=== PATIENT | female | born 1995 | race Caucasian/White ===

== ENCOUNTER 2016-12-31 19:36 | Observation (INO) | payer MEDICAID ==
--- NOTE | 2016-12-31 19:45 | EDM.PDOC ---
ED HPI GENERAL MEDICAL PROBLEM - General Chief Complaint: Abdominal Pain Stated Complaint: PT HAS STOMACH PAINS Time Seen by Provider: 12/31/16 19:40 - History of Present Illness INITIAL COMMENTS - FREE TEXT/NARRATIVE: HISTORY AND PHYSICAL: History of present illness: Patient is a 21-year-old white female with a positive home test presents with cervical study abdominal pain is November vaginal bleeding discharge trauma or other concern she did have a recent miscarriage and is quite anxious regarding the circumstances Review of systems: As per history of present illness and below otherwise all systems reviewed and negative. Past medical history: As per history of present illness and as reviewed below otherwise noncontributory. Surgical history: As per history of present illness and as reviewed below otherwise noncontributory. Social history: No reported history of drug or alcohol abuse. Family history: As per history of present illness and as reviewed below otherwise noncontributory. Physical exam: HEENT: Atraumatic, normocephalic, pupils reactive, negative for conjunctival pallor or scleral icterus, mucous membranes moist, throat clear, neck supple, nontender, trachea midline. Lungs: Clear to auscultation, breath sounds equal bilaterally, chest nontender. Heart: S1S2, regular, negative for clicks, rubs, or JVD. Abdomen: Soft, nondistended, nontender. Negative for masses or hepatosplenomegaly. Negative for costovertebral tenderness. Pelvis: Stable nontender. Genitourinary: Deferred. Rectal: Deferred. Extremities: Atraumatic, negative for cords or calf pain. Neurovascular unremarkable. Neuro: Awake, alert, oriented. Cranial nerves II through XII unremarkable. Cerebellum unremarkable. Motor and sensory unremarkable throughout. Exam nonfocal. Diagnostics: CBC quantitative beta hCG ABO Rh pelvic ultrasound Therapeutics: To be determined Impression: #1 first trimester #2 tubal Definitive disposition and diagnosis as appropriate pending reevaluation and review of above. Patient received 40 minutes total critical care independent of procedures Lower Abdominal Pain Score (Numeric/FACES): 6 - Related Data Allergies Allergy/AdvReac Type Severity Reaction Status Date / Time No Known Allergies Allergy Verified 12/31/16 19:55 Home Meds: Home Meds . [No Known Home Meds] 12/31/16 [History] Vit37/Iron/Folic Acid [Prenata] 12/31/16 [History] ED ROS GENERAL - Review of Systems Review Of Systems: ROS reveals no pertinent complaints other than HPI. ED EXAM, GENERAL - Physical Exam Exam: See Below (See dictation) Course - Vital Signs Last Recorded V/S: Last Vital Signs Temp 36.8 C 12/31/16 19:45 Pulse 78 12/31/16 21:15 Resp 18 12/31/16 21:15 BP 118/63 12/31/16 21:15 Pulse Ox 98 12/31/16 21:15 - Orders/Labs/Meds Orders: Active Orders 24 hr Category Date Time Status OB 1st Tri Sgl 1st Gest [US] Stat Exams 12/31/16 19:48 Taken Labs: Laboratory Tests 12/31/16 12/31/16 12/31/16 Range/Units 19:52 19:52 19:52 WBC 8.04 (4.0-11.0) K/uL RBC 4.08 L (4.30-5.90) M/uL Hgb 13.2 (12.0-16.0) g/dL Hct 37.5 (36.0-46.0) % MCV 91.9 (80.0-98.0) fL MCH 32.4 H (27.0-32.0) pg MCHC 35.2 (31.0-37.0) g/dL RDW Std Deviation 40.1 (28.0-62.0) fl RDW Coeff of Sarah 12 (11.0-15.0) % Plt Count 219 (150-400) K/uL MPV 9.00 (7.40-12.00) fL Neut % (Auto) 62.3 (48.0-80.0) % Lymph % (Auto) 27.4 (16.0-40.0) % [place] % (Auto) 9.1 (0.0-15.0) % Eos % (Auto) 1.0 (0.0-7.0) % Baso % (Auto) 0.2 (0.0-1.5) % Neut # (Auto) 5.0 (1.4-5.7) K/uL Lymph # (Auto) 2.2 (0.6-2.4) K/uL [place] # (Auto) 0.7 (0.0-0.8) K/uL Eos # (Auto) 0.1 (0.0-0.7) K/uL Baso # (Auto) 0.0 (0.0-0.1) K/uL Nucleated RBC % 0.0 /100WBC Nucleated RBCs # 0 K/uL Sodium 139 (136-146) mmol/L Potassium 3.4 L (3.5-5.1) mmol/L Chloride 110 (98-110) mmol/L Carbon Dioxide 21 (21-31) mmol/L BUN 13 (6.0-23.0) mg/dL Creatinine 0.7 (0.6-1.5) mg/dL Est Cr Clr Drug Dosing TNP Estimated GFR (MDRD) > 60.0 ml/min Glucose 89 (60-110) mg/dL Calcium 9.0 (8.8-10.8) mg/dL Total Bilirubin 0.3 (0.1-1.5) mg/dL AST 16 (5-40) IU/L ALT 19 (8-54) IU/L Alkaline Phosphatase 45 (40-150) Total Protein 6.8 (6.0-8.0) g/dL Albumin 4.0 (3.5-5.0) g/dL Globulin 2.8 (2.0-3.5) g/dL Albumin/Globulin Ratio 1.4 (1.3-2.8) HCG, Quant 4684.9 mIU/mL Departure - Departure Time of Disposition: 21:42 Disposition: Admitted As Inpatient 66 Condition: Good, Serious Clinical Impression: Abdominal pain, Tubal - Discharge Information Referrals: PCP,None [Primary Care Provider] - Forms: ED Department Discharge - My Orders Last 24 Hours: My Active Orders 12/31/16 19:48 OB 1st Tri Sgl 1st Gest [US] Stat - Assessment/Plan Last 24 Hours: My Active Orders 12/31/16 19:48 OB 1st Tri Sgl 1st Gest [US] Stat
[2016-12-31 20:21] LABS: CHLORIDE,CL 110 mmol/L (98-110); SODIUM,NA 139 mmol/L (136-146)
[2016-12-31] MEDS ORDERED: fentaNYL 100 MCG/2 ML SDV ONE ×2 (22:55→23:40)
[2016-12-31] MEDS ORDERED: Lidocaine 2% 5 ML SDV ONE (22:55)
[2016-12-31] MEDS ORDERED: Rocuronium 10 MG/ML 10 ML Syringe ONE (22:55)
[2016-12-31] MEDS ORDERED: Succinylcholine/Normal Saline 200 MG/10 ML Syringe ONE (22:55)
[2016-12-31] MEDS ORDERED: Ondansetron 4 MG/2 ML SDV ONE (22:55)
[2016-12-31] MEDS ORDERED: Propofol 200 MG/20 ML SDV ONE (22:55)
[2016-12-31] MEDS ORDERED: Midazolam 1 MG/ML 2 ML SDV ONE (22:56)
[2016-12-31] MEDS ORDERED: Bupivacaine 0.25% 10 ML SDV ONE (23:01)
--- NOTE | 2016-12-31 23:04 | PCM.PREANE ---
Preanesthetic Assessment - Anesthesia/Transfusion/Family Hx Anesthesia History: Prior Anesthesia Without Reaction Family History of Anesthesia Reaction: No Transfusion History: No Prior Transfusion(s) Intubation History: Unknown - Review of Systems General: No Symptoms Pulmonary: No Symptoms Cardiovascular: No Symptoms Gastrointestinal: No Symptoms Neurological: No Symptoms Other: Reports: None - Physical Assessment NPO Status Date: 12/31/16 NPO Status Time: 19:00 O2 Sat by Pulse Oximetry: 99 Respiratory Rate: 18 Vital Signs: Last Vital Signs Temp 99.3 F 12/31/16 22:41 Pulse 81 12/31/16 22:41 Resp 18 12/31/16 22:41 BP 127/78 12/31/16 22:41 Pulse Ox 99 12/31/16 22:41 Height: 5 ft 6 in Weight: 91 kg ASA Class: 2E Mental Status: Alert & Oriented x3 Airway Class: Mallampati = 2 Dentition: Reports: Normal Dentition Thyro-Mental Finger Breadths: 3 Mouth Opening Finger Breadths: 3 ROM/Head Extension: Full Lungs: Clear to Auscultation, Normal Respiratory Effort Cardiovascular: Regular Rate, Regular Rhythm - Lab Values: Laboratory Last Values WBC 8.04 K/uL (4.0-11.0) 12/31/16 19:52 RBC 4.08 M/uL (4.30-5.90) L 12/31/16 19:52 Hgb 13.2 g/dL (12.0-16.0) 12/31/16 19:52 Hct 37.5 % (36.0-46.0) 12/31/16 19:52 MCV 91.9 fL (80.0-98.0) 12/31/16 19:52 MCH 32.4 pg (27.0-32.0) H 12/31/16 19:52 MCHC 35.2 g/dL (31.0-37.0) 12/31/16 19:52 RDW Std Deviation 40.1 fl (28.0-62.0) 12/31/16 19:52 RDW Coeff of Sarah 12 % (11.0-15.0) 12/31/16 19:52 Plt Count 219 K/uL (150-400) 12/31/16 19:52 MPV 9.00 fL (7.40-12.00) 12/31/16 19:52 Neut % (Auto) 62.3 % (48.0-80.0) 12/31/16 19:52 Lymph % (Auto) 27.4 % (16.0-40.0) 12/31/16 19:52 [place] % (Auto) 9.1 % (0.0-15.0) 12/31/16 19:52 Eos % (Auto) 1.0 % (0.0-7.0) 12/31/16 19:52 Baso % (Auto) 0.2 % (0.0-1.5) 12/31/16 19:52 Neut # (Auto) 5.0 K/uL (1.4-5.7) 12/31/16 19:52 Lymph # (Auto) 2.2 K/uL (0.6-2.4) 12/31/16 19:52 [place] # (Auto) 0.7 K/uL (0.0-0.8) 12/31/16 19:52 Eos # (Auto) 0.1 K/uL (0.0-0.7) 12/31/16 19:52 Baso # (Auto) 0.0 K/uL (0.0-0.1) 12/31/16 19:52 Nucleated RBC % 0.0 /100WBC 12/31/16 19:52 Nucleated RBCs # 0 K/uL 12/31/16 19:52 Sodium 139 mmol/L (136-146) 12/31/16 19:52 Potassium 3.4 mmol/L (3.5-5.1) L 12/31/16 19:52 Chloride 110 mmol/L (98-110) 12/31/16 19:52 Carbon Dioxide 21 mmol/L (21-31) 12/31/16 19:52 BUN 13 mg/dL (6.0-23.0) 12/31/16 19:52 Creatinine 0.7 mg/dL (0.6-1.5) 12/31/16 19:52 Est Cr Clr Drug Dosing TNP 12/31/16 19:52 Estimated GFR (MDRD) > 60.0 ml/min 12/31/16 19:52 Glucose 89 mg/dL (60-110) 12/31/16 19:52 Calcium 9.0 mg/dL (8.8-10.8) 12/31/16 19:52 Total Bilirubin 0.3 mg/dL (0.1-1.5) 12/31/16 19:52 AST 16 IU/L (5-40) 12/31/16 19:52 ALT 19 IU/L (8-54) 12/31/16 19:52 Alkaline Phosphatase 45 (40-150) 12/31/16 19:52 Total Protein 6.8 g/dL (6.0-8.0) 12/31/16 19:52 Albumin 4.0 g/dL (3.5-5.0) 12/31/16 19:52 Globulin 2.8 g/dL (2.0-3.5) 12/31/16 19:52 Albumin/Globulin Ratio 1.4 (1.3-2.8) 12/31/16 19:52 HCG, Quant 4684.9 mIU/mL 12/31/16 19:52 - Allergies Allergies/Adverse Reactions: Allergies Allergy/AdvReac Type Severity Reaction Status Date / Time No Known Allergies Allergy Verified 12/31/16 19:55 - Acknowledgements Anesthesia Type Planned: General Anesthesia Pt an Appropriate Candidate for the Planned Anesthesia: Yes Alternatives and Risks of Anesthesia Discussed w Pt/Guardian: Yes Pt/Guardian Understands and Agrees with Anesthesia Plan: Yes PreAnesthesia Questionnaire HEENT History: Reports: None Cardiovascular History: Reports: None Respiratory History: Reports: Other (See Below) (Smoker) Gastrointestinal History: Reports: GERD Genitourinary History: Reports: None FEED MANAGER History: Reports: , Spontaneous LMP (Approximate): Musculoskeletal History: Reports: None Neurological History: Reports: None Psychiatric History: Reports: Anxiety Endocrine/Metabolic History: Reports: Obesity/BMI 30+ Hematologic History: Reports: None Immunologic History: Reports: None Oncologic (Cancer) History: Reports: None Dermatologic History: Reports: None - Infectious Disease History Infectious Disease History: Reports: None - Past Surgical History HEENT Surgical History: Reports: Tonsillectomy Cardiovascular Surgical History: Reports: None Respiratory Surgical History: Reports: None GI Surgical History: Reports: None Musculoskeletal Surgical History: Reports: None - SUBSTANCE USE Smoking Status *Q: Current Every Day Smoker Tobacco Use Within Last Twelve Months: Cigarettes - HOME MEDS Home Medications: Home Meds . [No Known Home Meds] 12/31/16 [History] Vit37/Iron/Folic Acid [Prenata] 12/31/16 [History] - CURRENT (IN HOUSE) MEDS Current Meds: Current Medications Discontinued Medications Bupivacaine HCl (Sensorcaine-Mpf 0.25%) Confirm Administered Dose 20 ml .ROUTE .STK-MED ONE Stop: 12/31/16 23:02 Fentanyl (Sublimaze) Confirm Administered Dose 200 mcg .ROUTE .STK-MED ONE Stop: 12/31/16 22:56 Lidocaine (Xylocaine-Mpf 2%) Confirm Administered Dose 5 ml .ROUTE .STK-MED ONE Stop: 12/31/16 22:56 Midazolam HCl (Versed 1 Mg/Ml) Confirm Administered Dose 2 mg .ROUTE .STK-MED ONE Stop: 12/31/16 22:57 Ondansetron HCl (Zofran) Confirm Administered Dose 4 mg .ROUTE .STK-MED ONE Stop: 12/31/16 22:56 Propofol (Diprivan 20 Ml) Confirm Administered Dose 200 mg .ROUTE .STK-MED ONE Stop: 12/31/16 22:56 Rocuronium [place] (Zemuron) Confirm Administered Dose 100 mg .ROUTE .STK-MED ONE Stop: 12/31/16 22:56 Succinylcholine Chloride (Succinylcholine In Ns Pf) Confirm Administered Dose 200 mg .ROUTE .STK-MED ONE Stop: 12/31/16 22:56
[2016-12-31] MEDS ORDERED: Neostigmine Methylsulfate 1 MG/ML 5 ML Syringe ONE (23:48)
[2016-12-31] MEDS ORDERED: Phenylephrine/Normal Saline 100 MCG/ML 10 ML Syringe ONE (23:51)
[2017-01-01] MEDS ORDERED: fentaNYL 100 MCG/2 ML SDV ONE ×4 (00:01→01:47)
[2017-01-01] MEDS ORDERED: Midazolam 1 MG/ML 2 ML SDV ONE (00:12)
--- NOTE | 2017-01-01 01:06 | PCM.OPNOTE ---
<Sonido Petersen - Last Filed: 01/01/17 01:01> - General Post-Op/Procedure Note Date of Surgery/Procedure: 12/31/16 Operative Procedure(s): Diagnostic laperoscopy with pelvic washings and ovarian biopsy Findings: Normal Right Ovary Left Ovarian Cyst Pre Op Diagnosis: Suspected left tubal ectopic Post-Op Diagnosis: same Anesthesia Technique: General LMA Primary Surgeon: Lyndsay Maxwell Sprigger: Sonido Petersen Pathology: Pelvic washings Left ovarian biopsy Left ovarian cyst wall biopsy Fluid Replacement, Intraop: 1,400 EBL in mLs: 20 Complications: None know Condition: Good Free Text/Narrative:: Intake & Output 12/31/16 12/31/16 01/01/17 14:59 22:59 06:59 Output Total 50 Balance -50 <Lyndsay Maxwell - Last Filed: 01/01/17 01:15> - General Post-Op/Procedure Note Operative Procedure(s): Diagnostic laparoscopy with pelvic washings and ovarian biopsy Post-Op Diagnosis: of unknow location Anesthesia Technique: General ET Tube Free Text/Narrative:: Intake & Output 12/31/16 12/31/16 01/01/17 14:59 22:59 06:59 Intake Total 1400 Output Total 50 Balance 1350
[2017-01-01] MEDS ORDERED: Ondansetron 4 MG/2 ML SDV IVPUSH PRN ×2 (01:16→05:21)
[2017-01-01] MEDS ORDERED: Promethazine 25 MG/ML SDV IM PRN ×2 (01:16→05:21)
[2017-01-01] MEDS ORDERED: Acetaminophen/oxyCODONE 325-5 MG Tab PO PRN ×4 (01:16→05:21)
[2017-01-01] MEDS ORDERED: Rho(D) Immune Globulin 300 MCG/2 ML Syringe IM ONE (01:22)
[2017-01-01] MEDS ORDERED: HYDROmorphone 1 MG/ML Syringe IVPUSH ONE ×2 (01:34→01:40)
[2017-01-01] MEDS ORDERED: HYDROmorphone 2 MG/ML Syringe ONE (01:36)
[2017-01-01] MEDS ORDERED: Promethazine 25 MG/ML SDV ONE (01:48)
[2017-01-01] MEDS: fentaNYL 100 MCG/2 ML SDV IVPUSH PRN ×2 (01:48→01:53)
--- NOTE | 2017-01-01 02:14 | PCM.POSTAN ---
POST ANESTHESIA ASSESSMENT - MENTAL STATUS Mental Status: Alert, Oriented - VITAL SIGNS Pulse Rate: 58 SaO2: 100 Resp Rate: 12 Blood Pressure: 137/84 - RESPIRATORY Respiratory Status: Respiratory Rate WNL, Airway Patent, O2 Saturation Stable - CARDIOVASCULAR CV Status: Pulse Rate WNL, Blood Pressure Stable - GASTROINTESTINAL GI Status: No Symptoms - PAIN Pain Score: 5 Free Text/Narrative:: Pain initially in PACU was "15/10", after multiple doses of narcotic in PACU the patients pain is now 5-6/10. Patient is observed dozing off. She has to be woken up to obtain a pain score at this time. Currently she has received Dilaudid 2mg IV and Fentanyl 150mcg IV in PACU. - POST OP HYDRATION Hydration Status: Adequate & Stable Free Text/Narrative:: Pt is taking PO ice chips at this time.
--- NOTE | 2017-01-01 02:20 | OR ---
SURGEON: Lyndsay Maxwell M.D. DATE OF PROCEDURE: 12/31/2016 PREOPERATIVE DIAGNOSIS: Suspected left ectopic . POSTOPERATIVE DIAGNOSIS: of unknown location. PIPE SUPERVISOR: CHARLEE Duval. ANESTHESIA: General endotracheal. FLUIDS: 1400 mL of crystalloid. ESTIMATED BLOOD LOSS: 20 mL. OPERATIVE FINDINGS: Exophytic vascular cyst of the left ovary. Normal right tube and ovary. Normal left tube. No hemoperitoneum. There was a moderate amount of free fluid in the pelvis, which was serous in nature and was sent for cytology. COMPLICATIONS: None known. DISPOSITION: Stable to recovery. PATHOLOGY SPECIMENS: Pelvic washings, left ovarian cyst biopsy, and left ovarian biopsy. BRIEF HISTORY: This is a 21-year-old female. She is G2, P0-0-1-0. She presented to the emergency room with lower abdominal pain and cramping. Her last menstrual period was sometime in October. When she presented to the emergency room, she had a quantitative hCG of 4684, her hemoglobin was 13.2, and white blood cell count 8.04. Ultrasound was performed and read by the [facility] as no intrauterine , normal-appearing right ovary, normal- appearing left ovary with a 5 cm complex mass adjacent to the left ovary consistent with left ectopic . Given the patient's pain and the finding of the mass adjacent to the left ovary and the hCG level above the discriminatory zone with no intrauterine , I did recommend proceeding with laparoscopic evaluation. I discussed the option of left salpingostomy versus left salpingectomy with salpingostomy providing risk of persistent ectopic and recurrent ectopic . She desires to proceed with a left salpingectomy for treatment of ectopic with possible laparotomy. Risks were discussed including bleeding; infection; injury to bowel, bladder, blood vessels, ureters, or other organs; risk of thromboembolic event. Understanding all these risks, she does desire to proceed. DESCRIPTION OF PROCEDURE: With the patient in dorsal lithotomy position under adequate general endotracheal anesthesia, the abdomen was prepped with chlorhexidine. The perineum and vagina were prepped with Betadine and draped in the usual fashion for laparoscopic surgery. Bimanual examination was performed with a large left adnexal mass palpable. The uterus was mid position, 8-week size. Hulka tenaculum was placed onto the cervix. The speculum was removed from the vagina and portable grinding machine operator's gloves were changed. Prior to proceeding with the surgery, SCDs had been placed, the bladder had been drained, and appropriate time-out was held. Two mL of 0.25% Marcaine were injected inferior to the umbilicus. A 5 mm vertical incision was made with a scalpel. The anterior abdominal was elevated, Veress needle was inserted, opening pressure was 3 mmHg. CO2 was insufflated to develop an adequate pneumoperitoneum of 13 mmHg. The uterus was elevated, the patient was placed in Trendelenburg position, and the pelvis was carefully inspected. Bilateral tubes were inspected, both tubes appeared normal. The right ovary appeared normal. The liver and gallbladder appeared normal. There was an exophytic cyst of the left ovary, 5 cm incised with hypervascularity in order to confirm that this was not an ovarian ectopic . I did slightly open the cyst. Clear fluid was noted. There was also serous fluid in the pelvis that had been collected for pelvic washings, and to this, was added the serous fluid from the ovarian cyst. I did not proceed any further with removal of the ovarian cyst as this may be a corpus luteum. Therefore, biopsies were taken of the cyst wall as well as ovary and hemostasis was established using the LigaSure. Once hemostasis was established, no further procedure was performed as there was no evidence of ectopic on laparoscopy. The abdomen was desufflated. The port sites were removed. Two additional ports had been placed in the right and left lower quadrant 2 cm medial and cephalad from the anterior superior iliac spines on the right and the left under direct visualization, a 5 mm port on the right and a 10 mm port on the left. After the port sites had been removed on the left lower quadrant incision, the fascia was closed with a running suture of 0 Polysorb. The skin was closed with subcuticular suture of 4- 0 Monocryl. The Hulka tenaculum was removed from the cervix. The puncture site on the cervix was treated with silver nitrate and was hemostatic. There was no bleeding from the cervix. The speculum was removed from the vagina. Final sponge, needle, and instrument counts were reported as correct. There were no known complications. The patient was transferred to recovery in good condition. KAIA / KINGA /[id number]
[2017-01-01] MEDS ORDERED: Morphine 4 MG/ML Syringe IVPUSH PRN (05:21)
--- NOTE | 2017-01-01 07:17 | PCM48HPAN ---
Post Anesthesia Note - EVALUATION WITHIN 48HRS OF ANESTHETIC Vital Signs in Normal Range: Yes Patient Participated in Evaluation: Yes Respiratory Function Stable: Yes Airway Patent: Yes Cardiovascular Function Stable: Yes Hydration Status Stable: Yes Pain Control Satisfactory: Yes Nausea and Vomiting Control Satisfactory: Yes Mental Status Recovered: Yes
--- NOTE | 2017-01-01 08:41 | PCM.PN ---
<Sonido Petersen - Last Filed: 01/01/17 08:45> - General Info Date of Service: 01/01/17 Functional Status: Reports: Pain Controlled (pain is controled with medications) , Ambulating, Urinating - Review of Systems General: Denies: Fever HEENT: Reports: Sore Throat. Denies: Headaches, Visual Changes Pulmonary: Denies: Shortness of Breath, Pleuritic Chest Pain, Cough Cardiovascular: Denies: Chest Pain, Palpitations, Dyspnea on Exertion Gastrointestinal: Reports: Abdominal Pain (entire abdominal area is tendar). Denies: Diarrhea, Difficulty Swallowing, Flatus, Nausea, Vomiting Genitourinary: Denies: Dysuria, Frequency, Burning Neurological: Reports: Dizziness (when standing). Denies: Headache, Seizure - Patient Data Vitals - Most Recent: Last Vital Signs Temp 98.3 F 01/01/17 07:40 Pulse 78 01/01/17 07:40 Resp 18 01/01/17 07:40 BP 113/69 01/01/17 07:40 Pulse Ox 97 01/01/17 07:40 Weight - Most Recent: 91 kg I&O - Last 24 Hours: Intake & Output 12/31/16 01/01/17 01/01/17 22:59 06:59 14:59 Intake Total 1900 Output Total 600 Balance 1300 Lab Results Last 24 Hours: Laboratory Results - last 24 hr 01/01/17 01/01/17 Range/Units 05:46 05:46 Progesterone 9.5 NG/ML HCG, Quant 3412.5 mIU/mL Med Orders - Current: Current Medications Morphine Sulfate (Morphine) 4 mg IVPUSH Q2H PRN PRN Reason: Pain (severe 7-10) Last Admin: 01/01/17 07:58 Dose: 4 mg Ondansetron HCl (Zofran) 4 mg IVPUSH Q6H PRN PRN Reason: Nausea/Vomiting Oxycodone/Acetaminophen (Percocet 325-5 Mg) 1 tab PO Q4H PRN PRN Reason: Pain (moderate 4-6) Oxycodone/Acetaminophen (Percocet 325-5 Mg) 2 tab PO Q4H PRN PRN Reason: Pain (moderate 4-6) Promethazine HCl (Phenergan) 25 mg IM Q6H PRN PRN Reason: Nausea/Vomiting Discontinued Medications Bupivacaine HCl (Sensorcaine-Mpf 0.25%) Confirm Administered Dose 20 ml .ROUTE .STK-MED ONE Stop: 12/31/16 23:02 Fentanyl (Sublimaze) Confirm Administered Dose 200 mcg .ROUTE .STK-MED ONE Stop: 12/31/16 22:56 Fentanyl (Sublimaze) Confirm Administered Dose 100 mcg .ROUTE .STK-MED ONE Stop: 12/31/16 23:41 Fentanyl (Sublimaze) Confirm Administered Dose 100 mcg .ROUTE .STK-MED ONE Stop: 01/01/17 00:02 Fentanyl (Sublimaze) Confirm Administered Dose 100 mcg .ROUTE .STK-MED ONE Stop: 01/01/17 00:32 Fentanyl (Sublimaze) Confirm Administered Dose 100 mcg .ROUTE .STK-MED ONE Stop: 01/01/17 01:11 Fentanyl (Sublimaze) 50 mcg IVPUSH Q5M PRN PRN Reason: Pain (severe 7-10) Stop: 01/02/17 01:45 Last Admin: 01/01/17 01:53 Dose: 50 mcg Fentanyl (Sublimaze) Confirm Administered Dose 100 mcg .ROUTE .STK-MED ONE Stop: 01/01/17 01:48 Last Admin: 01/01/17 01:13 Dose: 100 mcg Glycopyrrolate () Confirm Administered Dose 1 mg .ROUTE .STK-MED ONE Stop: 12/31/16 23:49 Hydromorphone HCl (Dilaudid) 1 mg IVPUSH ONETIME ONE Stop: 01/01/17 01:35 Hydromorphone HCl (Dilaudid) Confirm Administered Dose 2 mg .ROUTE .STK-MED ONE Stop: 01/01/17 01:37 Hydromorphone HCl (Dilaudid) 1 mg IVPUSH ONETIME ONE Stop: 01/01/17 01:41 Lidocaine (Xylocaine-Mpf 2%) Confirm Administered Dose 5 ml .ROUTE .STK-MED ONE Stop: 12/31/16 22:56 Midazolam HCl (Versed 1 Mg/Ml) Confirm Administered Dose 2 mg .ROUTE .STK-MED ONE Stop: 12/31/16 22:57 Midazolam HCl (Versed 1 Mg/Ml) Confirm Administered Dose 2 mg .ROUTE .STK-MED ONE Stop: 01/01/17 00:13 Neostigmine Methylsulfate (Neostigmine) Confirm Administered Dose 5 mg .ROUTE .STK-MED ONE Stop: 12/31/16 23:49 Ondansetron HCl (Zofran) Confirm Administered Dose 4 mg .ROUTE .STK-MED ONE Stop: 12/31/16 22:56 Ondansetron HCl (Zofran) 4 mg IVPUSH Q6H PRN PRN Reason: Nausea/Vomiting Oxycodone/Acetaminophen (Percocet 325-5 Mg) 1 tab PO Q4H PRN PRN Reason: Pain (moderate 4-6) Oxycodone/Acetaminophen (Percocet 325-5 Mg) 2 tab PO Q4H PRN PRN Reason: Pain (moderate 4-6) Phenylephrine HCl (Phenylephrine In Ns 100 Mcg/Ml) Confirm Administered Dose 1 mg .ROUTE .STK-MED ONE Stop: 12/31/16 23:52 Promethazine HCl (Phenergan) 25 mg IM Q6H PRN PRN Reason: Nausea/Vomiting Promethazine HCl (Phenergan) Confirm Administered Dose 25 mg .ROUTE .STK-MED ONE Stop: 01/01/17 01:49 Last Admin: 01/01/17 07:49 Dose: Not Given Propofol (Diprivan 20 Ml) Confirm Administered Dose 200 mg .ROUTE .STK-MED ONE Stop: 12/31/16 22:56 Rho Immune Globulin (Rhophylac) 0 mcg IM ONETIME ONE Stop: 01/01/17 01:23 Rocuronium [place] (Zemuron) Confirm Administered Dose 100 mg .ROUTE .STK-MED ONE Stop: 12/31/16 22:56 Succinylcholine Chloride (Succinylcholine In Ns Pf) Confirm Administered Dose 200 mg .ROUTE .STK-MED ONE Stop: 12/31/16 22:56 - Exam General: Alert, Oriented, Cooperative HEENT: Pupils Equal, Mucous Membr. Moist/[place] Neck: Trachea Midline Lungs: Clear to Auscultation, Normal Respiratory Effort Cardiovascular: Regular Rate, Regular Rhythm GI/Abdominal Exam: Normal Bowel Sounds, Soft, Tender (entire abdomen) (Female) Exam: No: Vaginal Bleeding Extremities: Normal Inspection, Normal Range of Motion Wound/Incisions: Drainage (minimal noted) Neurological: No New Focal Deficit Psy/Mental Status: Alert, Normal Affect, Normal Mood - Problem List & Annotations (1) Abdominal pain SNOMED Code(s): 65445229 Code(s): R10.9 - UNSPECIFIED ABDOMINAL PAIN Status: Acute Current Visit: Yes QualifierTitle: Abdominal location: unspecified location Qualified Code(s ): R10.9 - Unspecified abdominal pain (2) Tubal SNOMED Code(s): 15385452 Code(s): O00.109 - UNSPECIFIED TUBAL WITHOUT INTRAUTERINE Status: Acute Current Visit: Yes QualifierTitle: Intrauterine status: unspecified - Problem List Review Problem List Initiated/Reviewed/Updated: Yes - Assessment Assessment:: Patient is post-op 7 hours and pain is controlled with IV pain medication. She has no fever and other signs of infection with wounds healing well. She is tolerating fluids well and was just starting to eat breakfast as I entered the room. She as been ambulating with assistance to the bathroom but states that she is mildly dizzy when she does. - Plan Plan:: Transition patient to oral Percocet for pain management After breakfast encourage patient to ambulate in the sidhu After patient is tolerating normal diet, able to swallow oral pain meds, ambulates without assistance then prepare patient for discharge <Lyndsay Maxwell - Last Filed: 01/01/17 08:56> - Patient Data Vitals - Most Recent: Last Vital Signs Temp 36.8 C 01/01/17 07:40 Pulse 78 01/01/17 07:40 Resp 18 01/01/17 07:40 BP 113/69 01/01/17 07:40 Pulse Ox 97 01/01/17 07:40 I&O - Last 24 Hours: Intake & Output 12/31/16 01/01/17 01/01/17 22:59 06:59 14:59 Intake Total 1900 Output Total 600 Balance 1300 Lab Results Last 24 Hours: Laboratory Results - last 24 hr 01/01/17 01/01/17 Range/Units 05:46 05:46 Progesterone 9.5 NG/ML HCG, Quant 3412.5 mIU/mL Med Orders - Current: Current Medications Ketorolac Tromethamine (Toradol) 30 mg IVPUSH Q6H RAMILA Stop: 01/06/17 08:50 Morphine Sulfate (Morphine) 4 mg IVPUSH Q2H PRN PRN Reason: Pain (severe 7-10) Last Admin: 10/20/17 07:58 Dose: 4 mg Ondansetron HCl (Zofran) 4 mg IVPUSH Q6H PRN PRN Reason: Nausea/Vomiting Oxycodone/Acetaminophen (Percocet 325-5 Mg) 1 tab PO Q4H PRN PRN Reason: Pain (moderate 4-6) Oxycodone/Acetaminophen (Percocet 325-5 Mg) 2 tab PO Q4H PRN PRN Reason: Pain (moderate 4-6) Promethazine HCl (Phenergan) 25 mg IM Q6H PRN PRN Reason: Nausea/Vomiting Discontinued Medications Bupivacaine HCl (Sensorcaine-Mpf 0.25%) Confirm Administered Dose 20 ml .ROUTE .STK-MED ONE Stop: 12/31/16 23:02 Fentanyl (Sublimaze) Confirm Administered Dose 200 mcg .ROUTE .STK-MED ONE Stop: 12/31/16 22:56 Fentanyl (Sublimaze) Confirm Administered Dose 100 mcg .ROUTE .STK-MED ONE Stop: 12/31/16 23:41 Fentanyl (Sublimaze) Confirm Administered Dose 100 mcg .ROUTE .STK-MED ONE Stop: 01/01/17 00:02 Fentanyl (Sublimaze) Confirm Administered Dose 100 mcg .ROUTE .STK-MED ONE Stop: 01/01/17 00:32 Fentanyl (Sublimaze) Confirm Administered Dose 100 mcg .ROUTE .STK-MED ONE Stop: 01/01/17 01:11 Fentanyl (Sublimaze) 50 mcg IVPUSH Q5M PRN PRN Reason: Pain (severe 7-10) Stop: 01/02/17 01:45 Last Admin: 01/01/17 01:53 Dose: 50 mcg Fentanyl (Sublimaze) Confirm Administered Dose 100 mcg .ROUTE .STK-MED ONE Stop: 01/01/17 01:48 Last Admin: 01/01/17 01:13 Dose: 100 mcg Glycopyrrolate () Confirm Administered Dose 1 mg .ROUTE .STK-MED ONE Stop: 12/31/16 23:49 Hydromorphone HCl (Dilaudid) 1 mg IVPUSH ONETIME ONE Stop: 01/01/17 01:35 Hydromorphone HCl (Dilaudid) Confirm Administered Dose 2 mg .ROUTE .STK-MED ONE Stop: 01/01/17 01:37 Hydromorphone HCl (Dilaudid) 1 mg IVPUSH ONETIME ONE Stop: 01/01/17 01:41 Lidocaine (Xylocaine-Mpf 2%) Confirm Administered Dose 5 ml .ROUTE .STK-MED ONE Stop: 12/31/16 22:56 Midazolam HCl (Versed 1 Mg/Ml) Confirm Administered Dose 2 mg .ROUTE .STK-MED ONE Stop: 12/31/16 22:57 Midazolam HCl (Versed 1 Mg/Ml) Confirm Administered Dose 2 mg .ROUTE .STK-MED ONE Stop: 01/01/17 00:13 Neostigmine Methylsulfate (Neostigmine) Confirm Administered Dose 5 mg .ROUTE .STK-MED ONE Stop: 12/31/16 23:49 Ondansetron HCl (Zofran) Confirm Administered Dose 4 mg .ROUTE .STK-MED ONE Stop: 12/31/16 22:56 Ondansetron HCl (Zofran) 4 mg IVPUSH Q6H PRN PRN Reason: Nausea/Vomiting Oxycodone/Acetaminophen (Percocet 325-5 Mg) 1 tab PO Q4H PRN PRN Reason: Pain (moderate 4-6) Oxycodone/Acetaminophen (Percocet 325-5 Mg) 2 tab PO Q4H PRN PRN Reason: Pain (moderate 4-6) Phenylephrine HCl (Phenylephrine In Ns 100 Mcg/Ml) Confirm Administered Dose 1 mg .ROUTE .STK-MED ONE Stop: 12/31/16 23:52 Promethazine HCl (Phenergan) 25 mg IM Q6H PRN PRN Reason: Nausea/Vomiting Promethazine HCl (Phenergan) Confirm Administered Dose 25 mg .ROUTE .STK-MED ONE Stop: 01/01/17 01:49 Last Admin: 01/01/17 07:49 Dose: Not Given Propofol (Diprivan 20 Ml) Confirm Administered Dose 200 mg .ROUTE .STK-MED ONE Stop: 12/31/16 22:56 Rho Immune Globulin (Rhophylac) 0 mcg IM ONETIME ONE Stop: 01/01/17 01:23 Rocuronium [place] (Zemuron) Confirm Administered Dose 100 mg .ROUTE .STK-MED ONE Stop: 12/31/16 22:56 Succinylcholine Chloride (Succinylcholine In Ns Pf) Confirm Administered Dose 200 mg .ROUTE .STK-MED ONE Stop: 12/31/16 22:56 - Problem List & Annotations (1) Pelvic pain affecting SNOMED Code(s): 376844245 Code(s): O26.899 - OTH RELATED CONDITIONS, UNSPECIFIED TRIMESTER; R10.2 - PELVIC AND PERINEAL PAIN Status: Acute Current Visit: Yes Qualifiers: Trimester: first trimester Qualified Code(s): O26.891 - Other specified related conditions, first trimester; R10.2 - Pelvic and perineal pain ; R10.2 - Pelvic and perineal pain - Problem List Review Problem List Initiated/Reviewed/Updated: Yes - My Orders Last 24 Hours: My Active Orders 01/01/17 05:21 Patient Status [ADT] Routine Antiembolic Devices [RC] PER UNIT ROUTINE Notify Provider Intake and Out [RC] ASDIRECTED Notify Provider Vital Signs [RC] ASDIRECTED Oxygen Therapy [RC] ASDIRECTED RT Incentive Spirometry [RC] Q2HWA Up With Assistance [RC] PER UNIT ROUTINE Up ad [place] [RC] PER UNIT ROUTINE Vital Signs [RC] PER UNIT ROUTINE Acetaminophen/oxyCODONE [Percocet 325-5 MG] 1 tab PO Q4H PRN Acetaminophen/oxyCODONE [Percocet 325-5 MG] 2 tab PO Q4H PRN Morphine 4 mg IVPUSH Q2H PRN Ondansetron [Zofran] 4 mg IVPUSH Q6H PRN Promethazine [Phenergan] 25 mg IM Q6H PRN Peripheral IV Discontinue [OM.PC] Routine Sequential Compression Device [OM.PC] Per Unit Routine Resuscitation Status Routine 01/01/17 08:53 Ready for Discharge [RC] PER UNIT ROUTINE 01/01/17 09:00 Ketorolac [Toradol] 30 mg IVPUSH Q6H 01/01/17 Breakfast Regular Diet [DIET] 01/02/17 05:11 CBC WITH AUTO DIFF [HEME] AM 01/02/17 05:30 BASIC METABOLIC PANEL,BMP [CHEM] AM - Plan Plan:: Patient was seen and examined by me and I agree with above. I reviewed operative findings, including normal tubes bilaterally with left ovarian cyst which was biopsies. HCG levels are falling rapidly, consistent with loss that was not an ectopic . I would like her to have weekly HCG levels until zero and follow up in 2 weeks with me.
[2017-01-01] MEDS: Ketorolac 30 MG/ML SDV IVPUSH SCH ×2 (09:15→14:44)
--- NOTE | 2017-01-01 10:40 | US ---
EXAM DATE: 01/01/17 PATIENT'S AGE: 21 Patient: GITA RAMSEY Facility: [place], [place] Site . Site : 1995 Study: US OB Pelvis [id number] 9:34:24 PM Ordering Physician: Handy Au Final Report: INDICATION: Pain, vaginal bleeding, beta HCG is 4684 TECHNIQUE: Ultrasound OB pelvis transvaginal. Real-time thompson-scale imaging of the pelvis was performed. COMPARISON: None FINDINGS: No intrauterine is identified. There is a 5.0 centimeter mass adjacent to the left ovary. There is a small amount of free fluid within the pelvis. The uterus measures 9.2 x 5.0 x 5.2 cm. Endometrial thickness is 0.9 cm. The myometrium is normal. The left ovary measures 2.3 x 3.4 x 4.0 cm. Right ovary measures 3.2 x 3.0 x 1.8 cm. Both ovaries are noted to be slightly hypervascular. IMPRESSION: : Findings highly concerning for a left sided ectopic . These findings were discussed with Dr. Murrell at 10:02 p.m. on December 31, 2016. Dictated by Farzana Pandey MD @ Dec 31 2016 10:05PM (Electronic Signature) Report Signed by Proxy. KALEY
== END 2017-01-01 16:55 | disposition home or self-care (01) ==
LOC: MW.ED 19:36 → MW.SDS 22:45 → MW.OB 01-01 01:17
PROVIDERS: ADMIT Obstetrics & Gynecology; ATTEND Obstetrics & Gynecology
DX: N83.12 Corpus luteum cyst of left ovary (principal); F17.210 Nicotine dependence, cigarettes, uncomplicated; Z90.89 Acquired absence of other organs; Z79.899 Other long term (current) drug therapy
CPT/HCPCS: 36415; 49321; 76801; 80053; 84144; 84702; 85025; 86850; 86900; 86901; 99285; G0378; J1170; J1885; J2250; J2270; J2405; J2790; J3010; 00840; 88104; 88305; 99291; J2704

== ENCOUNTER 2017-02-11 13:52 | Emergency (ER) | payer MEDICAID ==
[2017-02-11] MEDS ORDERED: Sodium Chloride 0.9% 1,000 ML IV ONE (14:39)
[2017-02-11] MEDS ORDERED: Ondansetron 4 MG/2 ML SDV IVPUSH ONE (14:39)
[2017-02-11] MEDS ORDERED: Sodium Chloride 0.9% 10 ML Syringe FLUSH PRN (14:39)
[2017-02-11] MEDS ORDERED: Sodium Chloride 0.9% 2.5 ML Syringe FLUSH PRN (14:39)
--- NOTE | 2017-02-11 14:46 | EDM.PDOC ---
ED HPI GENERAL MEDICAL PROBLEM - General Chief Complaint: Abdominal Pain Stated Complaint: ABD PAIN/ Time Seen by Provider: 02/11/17 14:37 Source of Information: Reports: Patient History Limitations: Reports: No Limitations - History of Present Illness INITIAL COMMENTS - FREE TEXT/NARRATIVE: History of present illness: []Patient is a 2 para 0 and is 12 weeks by ultrasound. She has had a complicated a very complicated and that she was initially diagnosed with an ectopic and went to surgery and found to have an ovarian cyst. She was followed up with repeat hCG Quant is an ultrasound found to have an early . 2 days ago she developed severe abdominal pain in her upper right and left abdomen and states she has had spotting was just after intercourse out every time she wipes after using the bathroom. She's been vomiting and is unable to keep any food or fluids down, she states she is hungry. She denies any diarrhea, fevers, chills, chest pain or shortness of breath. Review of systems: As per history of present illness and below otherwise all systems reviewed and negative. Past medical history: As per history of present illness and as reviewed below otherwise noncontributory. Surgical history: As per history of present illness and as reviewed below otherwise noncontributory. Social history: No reported history of drug or alcohol abuse. Family history: As per history of present illness and as reviewed below otherwise noncontributory. Physical exam: General: Well developed, well nourished in NAD HEENT: Atraumatic, normocephalic, pupils reactive, negative for conjunctival pallor or scleral icterus, mucous membranes moist, throat clear, neck supple, nontender, trachea midline. Lungs: Clear to auscultation, breath sounds equal bilaterally, chest nontender. Heart: S1S2, regular, negative for clicks, rubs, or JVD. Abdomen: Soft, nondistended, nontender. Negative for masses or hepatosplenomegaly. Negative for costovertebral tenderness. Pelvis: Stable nontender. Genitourinary: Deferred. Rectal: Deferred. Extremities: Atraumatic, negative for cords or calf pain. Neurovascular unremarkable. Neuro: Awake, alert, oriented. Cranial nerves II through XII unremarkable. Cerebellum unremarkable. Motor and sensory unremarkable throughout. Exam nonfocal. Diagnostics: []Normal Labs and ultrasound done shows a viable heart rate in the 170s Therapeutics: []IV hydrated and Zofran patient was able to tolerate by mouth fluids after this Impression: []Abdominal pain in with vomiting Plan: []Zofran as directed follow-up with OB return if symptoms worsen or change Definitive disposition and diagnosis as appropriate pending reevaluation and review of above. abdominal Pain Score (Numeric/FACES): 6 - Related Data Allergies Allergy/AdvReac Type Severity Reaction Status Date / Time No Known Allergies Allergy Verified 02/11/17 14:32 Home Meds: Home Meds Vit37/Iron/Folic Acid [Prenata] 1 tab PO DAILY 12/31/16 [History] Ondansetron [Zofran ODT] 4 mg PO Q8H PRN #16 tab.dis 02/11/17 [Rx] Past Medical History HEENT History: Reports: None Cardiovascular History: Reports: None Respiratory History: Reports: None Gastrointestinal History: Reports: GERD Genitourinary History: Reports: None [employer] History: Reports: , Spontaneous Musculoskeletal History: Reports: None Neurological History: Reports: None Psychiatric History: Reports: Anxiety Endocrine/Metabolic History: Reports: Obesity/BMI 30+ Hematologic History: Reports: None Immunologic History: Reports: None Oncologic (Cancer) History: Reports: None Dermatologic History: Reports: None - Infectious Disease History Infectious Disease History: Reports: None - Past Surgical History HEENT Surgical History: Reports: Tonsillectomy Cardiovascular Surgical History: Reports: None Respiratory Surgical History: Reports: None GI Surgical History: Reports: None Female Surgical History: Reports: Other (See Below) Other Female Surgeries/Procedures: ovarian cyst Musculoskeletal Surgical History: Reports: None Social & Family History - Family History GI: Reports: Other (See Below) Other GI Family History: Reports mother of Stomache cancer at the age of 33 OBGYN: Reports: , Other (See Below) Other OBGYN Family History: Sister has unknown origin infertility Oncologic: Reports: Other (See Below) Other Oncologic Family History: Mother from stomache cancer at age of 33 - Tobacco Use Smoking Status *Q: Current Every Day Smoker Years of Tobacco use: 5 Packs/Tins Daily: 0 Used Tobacco, but Quit: No Month Tobacco Last Used: December - Caffeine Use Caffeine Use: Reports: Tea - Recreational Drug Use Recreational Drug Use: No ED ROS GENERAL - Review of Systems Review Of Systems: See Below (See history of present illness) ED EXAM - Physical Exam Exam: See Below (See history of present illness) Course - Vital Signs Last Recorded V/S: Last Vital Signs Temp 98.0 F 02/11/17 14:28 Pulse 91 02/11/17 14:28 Resp 16 02/11/17 14:28 BP 110/59 L 02/11/17 14:28 Pulse Ox 98 02/11/17 14:28 - Orders/Labs/Meds Orders: Active Orders 24 hr Category Date Time Status Sodium Chloride 0.9% [Saline Flush] Med 02/11/17 14:39 Active 10 ml FLUSH ASDIRECTED PRN Sodium Chloride 0.9% [Saline Flush] Med 02/11/17 14:39 Active 2.5 ml FLUSH ASDIRECTED PRN Saline Lock Insert [OM.PC] Stat Oth 02/11/17 14:38 Ordered Medication Orders Sodium Chloride (Saline Flush) 10 ml FLUSH ASDIRECTED PRN PRN Reason: Keep Vein Open Last Admin: 02/11/17 15:09 Dose: 10 ml Sodium Chloride (Saline Flush) 2.5 ml FLUSH ASDIRECTED PRN PRN Reason: Keep Vein Open Last Admin: 02/11/17 15:09 Dose: 2.5 ml Labs: Laboratory Tests 02/11/17 02/11/17 02/11/17 Range/Units 13:10 14:52 14:52 WBC 9.27 (4.0-11.0) K/uL RBC 4.19 L (4.30-5.90) M/uL Hgb 13.4 (12.0-16.0) g/dL Hct 37.8 (36.0-46.0) % MCV 90.2 (80.0-98.0) fL MCH 32.0 (27.0-32.0) pg MCHC 35.4 (31.0-37.0) g/dL RDW Std Deviation 39.3 (28.0-62.0) fl RDW Coeff of Sarah 12 (11.0-15.0) % Plt Count 220 (150-400) K/uL MPV 9.10 (7.40-12.00) fL Neut % (Auto) 64.4 (48.0-80.0) % Lymph % (Auto) 28.4 (16.0-40.0) % Stanly % (Auto) 6.7 (0.0-15.0) % Eos % (Auto) 0.4 (0.0-7.0) % Baso % (Auto) 0.1 (0.0-1.5) % Neut # (Auto) 6.0 H (1.4-5.7) K/uL Lymph # (Auto) 2.6 H (0.6-2.4) K/uL Stanly # (Auto) 0.6 (0.0-0.8) K/uL Eos # (Auto) 0.0 (0.0-0.7) K/uL Baso # (Auto) 0.0 (0.0-0.1) K/uL Nucleated RBC % 0.0 /100WBC Nucleated RBCs # 0 K/uL Sodium 135 L (136-146) mmol/L Potassium 4.0 (3.5-5.1) mmol/L Chloride 108 (98-110) mmol/L Carbon Dioxide 20 L (21-31) mmol/L BUN 9 (6.0-23.0) mg/dL Creatinine 0.6 (0.6-1.5) mg/dL Est Cr Clr Drug Dosing 137.68 mL/min Estimated GFR (MDRD) > 60.0 ml/min Glucose 79 (60-110) mg/dL Calcium 9.1 (8.8-10.8) mg/dL Total Bilirubin 0.2 (0.1-1.5) mg/dL AST 16 (5-40) IU/L ALT 18 (8-54) IU/L Alkaline Phosphatase 43 (40-150) Total Protein 7.2 (6.0-8.0) g/dL Albumin 4.0 (3.5-5.0) g/dL Globulin 3.2 (2.0-3.5) g/dL Albumin/Globulin Ratio 1.3 (1.3-2.8) Lipase 15 (7-80) U/L HCG, Quant mIU/mL Urine Color YELLOW Urine Appearance CLEAR Urine pH 6.0 (5.0-8.0) Ur Specific Parnell 1.015 (1.001-1.035) Urine Protein NEGATIVE (NEGATIVE) mg/dL Urine Glucose (UA) NEGATIVE (NEGATIVE) mg/dL Urine Ketones NEGATIVE (NEGATIVE) mg/dL Urine Occult Blood NEGATIVE (NEGATIVE) Urine Nitrite NEGATIVE (NEGATIVE) Urine Bilirubin NEGATIVE (NEGATIVE) Urine Urobilinogen 0.2 (<2.0) EU/dL Ur Leukocyte Esterase NEGATIVE (NEGATIVE) Urine RBC 0-1 (0-2/HPF) Urine WBC 0-1 (0-5/HPF) Ur Epithelial Cells FEW (NONE-FEW) Urine Bacteria RARE (NEGATIVE) Urine Mucus LIGHT (NONE-MOD) 02/11/17 Range/Units 14:52 WBC (4.0-11.0) K/uL RBC (4.30-5.90) M/uL Hgb (12.0-16.0) g/dL Hct (36.0-46.0) % MCV (80.0-98.0) fL MCH (27.0-32.0) pg MCHC (31.0-37.0) g/dL RDW Std Deviation (28.0-62.0) fl RDW Coeff of Sarah (11.0-15.0) % Plt Count (150-400) K/uL MPV (7.40-12.00) fL Neut % (Auto) (48.0-80.0) % Lymph % (Auto) (16.0-40.0) % Stanly % (Auto) (0.0-15.0) % Eos % (Auto) (0.0-7.0) % Baso % (Auto) (0.0-1.5) % Neut # (Auto) (1.4-5.7) K/uL Lymph # (Auto) (0.6-2.4) K/uL Stanly # (Auto) (0.0-0.8) K/uL Eos # (Auto) (0.0-0.7) K/uL Baso # (Auto) (0.0-0.1) K/uL Nucleated RBC % /100WBC Nucleated RBCs # K/uL Sodium (136-146) mmol/L Potassium (3.5-5.1) mmol/L Chloride (98-110) mmol/L Carbon Dioxide (21-31) mmol/L BUN (6.0-23.0) mg/dL Creatinine (0.6-1.5) mg/dL Est Cr Clr Drug Dosing mL/min Estimated GFR (MDRD) ml/min Glucose (60-110) mg/dL Calcium (8.8-10.8) mg/dL Total Bilirubin (0.1-1.5) mg/dL AST (5-40) IU/L ALT (8-54) IU/L Alkaline Phosphatase (40-150) Total Protein (6.0-8.0) g/dL Albumin (3.5-5.0) g/dL Globulin (2.0-3.5) g/dL Albumin/Globulin Ratio (1.3-2.8) Lipase (7-80) U/L HCG, Quant 37085.2 mIU/mL Urine Color Urine Appearance Urine pH (5.0-8.0) Ur Specific Parnell (1.001-1.035) Urine Protein (NEGATIVE) mg/dL Urine Glucose (UA) (NEGATIVE) mg/dL Urine Ketones (NEGATIVE) mg/dL Urine Occult Blood (NEGATIVE) Urine Nitrite (NEGATIVE) Urine Bilirubin (NEGATIVE) Urine Urobilinogen (<2.0) EU/dL Ur Leukocyte Esterase (NEGATIVE) Urine RBC (0-2/HPF) Urine WBC (0-5/HPF) Ur Epithelial Cells (NONE-FEW) Urine Bacteria (NEGATIVE) Urine Mucus (NONE-MOD) Meds: Medications Generic Name Dose Route Start Last Admin Trade Name Freq PRN Reason Stop Dose Admin Sodium Chloride 10 ml 02/11/17 14:39 02/11/17 15:09 Saline Flush FLUSH 10 ml ASDIRECTED PRN Administration Keep Vein Open Sodium Chloride 2.5 ml 02/11/17 14:39 02/11/17 15:09 Saline Flush FLUSH 2.5 ml ASDIRECTED PRN Administration Keep Vein Open Discontinued Medications Generic Name Dose Route Start Last Admin Trade Name Freq PRN Reason Stop Dose Admin Sodium Chloride 1,000 mls @ 999 mls/hr 02/11/17 14:39 02/11/17 15:09 Normal Saline IV 02/11/17 15:39 999 mls/hr .Bolus ONE Administration Ondansetron HCl 4 mg 02/11/17 14:39 02/11/17 15:09 Zofran IVPUSH 02/11/17 14:40 4 mg ONETIME ONE Administration Departure - Departure Time of Disposition: 16:20 Disposition: Home, Self-Care 01 Condition: Good Clinical Impression: Abdominal pain during Qualifiers: Trimester: first trimester Qualified Code(s): O26.891 - Other specified related conditions, first trimester; R10.9 - Unspecified abdominal pain; R10.9 - Unspecified abdominal pain - Discharge Information Prescriptions: Ondansetron [Zofran ODT] 4 mg PO Q8H PRN #16 tab.dis PRN Reason: Nausea Referrals: Lyndsay Maxwell MD [Primary Care Provider] - Forms: ED Department Discharge Additional Instructions: The following information is given to patients seen in the emergency department who are being discharged to home. This information is to outline your options for follow-up care. We provide all patients seen in our emergency department with a follow-up referral. The need for follow-up, as well as the timing and circumstances, are variable depending upon the specifics of your emergency department visit. If you don't have a primary care physician on staff, we will provide you with a referral. We always advise you to contact your personal physician following an emergency department visit to inform them of the circumstance of the visit and for follow-up with them and/or the need for any referrals to a consulting specialist. The emergency department will also refer you to a specialist when appropriate. This referral assures that you have the opportunity for follow-up care with a specialist. All of these measure are taken in an effort to provide you with optimal care, which includes your follow-up. Under all circumstances we always encourage you to contact your private physician who remains a resource for coordinating your care. When calling for follow-up care, please make the office aware that this follow-up is from your recent emergency room visit. If for any reason you are refused follow-up, please contact the [facility] Emergency Department at and asked to speak to the emergency department charge nurse. Take Zofran as directed for nausea and vomiting, follow-up with your OB physician or return here if symptoms worsen or change [facility] [address] [place] [id number] - My Orders Last 24 Hours: My Active Orders 02/11/17 14:38 Saline Lock Insert [OM.PC] Stat 02/11/17 14:39 Sodium Chloride 0.9% [Saline Flush] 10 ml FLUSH ASDIRECTED PRN Sodium Chloride 0.9% [Saline Flush] 2.5 ml FLUSH ASDIRECTED PRN - Assessment/Plan Last 24 Hours: My Active Orders 02/11/17 14:38 Saline Lock Insert [OM.PC] Stat 02/11/17 14:39 Sodium Chloride 0.9% [Saline Flush] 10 ml FLUSH ASDIRECTED PRN Sodium Chloride 0.9% [Saline Flush] 2.5 ml FLUSH ASDIRECTED PRN
[2017-02-11 15:30] LABS: CHLORIDE,CL 108 mmol/L (98-110); SODIUM,NA 135 mmol/L (136-146)
--- NOTE | 2017-02-11 15:50 | US ---
EXAMINATION: Transvaginal obstetric ultrasound HISTORY: Pain COMPARISON: 12/31/2016 TECHNIQUE: Grayscale, M-mode and color Doppler images obtained. FINDINGS: There is a single live intrauterine identified with a heart rate of 170 bpm. The crown-rump length measures 4 cm. This gives an estimated gestational age at 10 weeks and 6 days with an estimated date of delivery is 09/03/2017. Both the left and right ovaries are normal in size, contour, and echogenicity demonstrating normal co paul Doppler flow. No free pelvic fluid. IMPRESSION: 1. Single live intrauterine .
== END 2017-02-11 16:42 | disposition home or self-care (01) ==
LOC: MW.ED 13:52
DX: O99.89 Other specified diseases and conditions complicating pregnancy, childbirth and the puerperium (principal); R10.11 Right upper quadrant pain; R10.12 Left upper quadrant pain; O21.9 Vomiting of pregnancy, unspecified; O99.331 Smoking (tobacco) complicating pregnancy, first trimester; F17.210 Nicotine dependence, cigarettes, uncomplicated; Z3A.12 12 weeks gestation of pregnancy
CPT/HCPCS: 36415; 76817; 80053; 81001; 83690; 84702; 85025; 96361; 96374; 99284; J2405; J7040